=== PATIENT | female | born 1955 | race Hispanic/Latino ===

== ENCOUNTER 2017-07-23 16:58 | Emergency (ER) | payer OTHER, MEDICARE ==
[2017-07-23 17:49] LABS: APPEARANCE,URINE Cloudy (CLEAR); BILIRUBIN,URINE Small (NEGATIVE); COLOR,URINE Dark Yellow (YELLOW); GLUCOSE, URINE (UA) Negative (NEGATIVE); KETONES,URINE Negative (NEGATIVE); LEUKOCYTE ESTERASE ,URINE Moderate (NEGATIVE); NITRATE,URINE Negative (NEGATIVE); OCCULT BLOOD,URINE Large (NEGATIVE); PH,URINE 6.5 (5.0-8.0); PROTEIN,URINE POS 2+ (NEGATIVE)
[2017-07-23] MEDS ORDERED: SODIUM CHLORIDE 0.9% 1000ML 1,000 ML IV ONE (17:51)
[2017-07-23] MEDS ORDERED: ONDANSETRON HCL 4 MG/2 ML VIAL ONE (17:51)
[2017-07-23] MEDS ORDERED: KETOROLAC TROMETHAMINE 30MG/ML ONE (17:51)
[2017-07-23 17:55] LABS: BASOPHILS % (AUTO) 0.8 % (0.0-5.0); EOSINOPHILS % (AUTO) 2.5 % (0.0-8.0); HEMATOCRIT 40.2 % (36-48); LYMPHOCYTES % (AUTO) 27.9 % (21.0-51.0); MEAN CORPUSCULAR HEMOGLOBIN 29.4 pg (27.0-33.0); MEAN CORPUSCULAR VOLUME 86.5 fL (79-99); NEUTROPHILS % (AUTO) 60.8 % (40.0-77.0); PLATELET COUNT (AUTO) 299 K/uL (130-400); RED BLOOD CELL COUNT(AUTO) 4.65 MIL/uL (4.00-5.50); WHITE BLOOD COUNT (AUTO) 14.9 K/uL (4.8-10.8)
[2017-07-23 18:04] LABS: BACTERIA,URINE Rare /HPF (None Seen); MUCUS,URINE Few LPF (None Seen)
[2017-07-23 18:05] LABS: CREATININE 0.7 mg/dL (0.5-1.5); POTASSIUM 3.2 mmol/L (3.5-5.1)
[2017-07-23] MEDS ORDERED: CEFTRIAXONE SODIUM 1 GM ONE (19:10)
[2017-07-23] MEDS ORDERED: PHENAZOPYRIDINE HCL 200 MG TABLET ONE (19:53)
== END 2017-07-23 20:28 | disposition home or self-care (01) ==
LOC: EDH 16:58
DX: N39.0 Urinary tract infection, site not specified (principal); R10.9 Unspecified abdominal pain; I10 Essential (primary) hypertension; E11.9 Type 2 diabetes mellitus without complications; M19.90 Unspecified osteoarthritis, unspecified site; E07.9 Disorder of thyroid, unspecified; M79.7 Fibromyalgia; Z98.890 Other specified postprocedural states
CPT/HCPCS: 36415; 74176; 80048; 81001; 85025; 96361; 96374; 96375; 99285; J0696; J1885; J2405; J7030

== ENCOUNTER → 2018-03-08 | Outpatient (CLI) | payer OTHER, MEDICARE ==
[~2018-03-08] MED LIST: ASPI-555 PO; DEXL60CA3 PO; DULO40CA2 PO; GABA-318 PO; LAMO25TA8 PO; LEVO75TA4 PO; LOSA1TAB2 PO; LOVA10TA2 PO; METF-444 PO; OMEP20TA25 PO; TRAZ-187 PO
== END | disposition home or self-care (01) ==
LOC: RAH 13:02
PROVIDERS: ATTEND Internal Medicine
DX: N20.0 Calculus of kidney (principal)
CPT/HCPCS: 74018

== ENCOUNTER → 2018-03-21 | Outpatient (CLI) | payer OTHER, MEDICARE | END | disposition home or self-care (01) | LOC: OIH 08:19 | PROVIDERS: ATTEND Internal Medicine | DX: N20.0 Calculus of kidney (principal); N26.1 Atrophy of kidney (terminal); K74.60 Unspecified cirrhosis of liver; Q63.8 Other specified congenital malformations of kidney | CPT/HCPCS: 74176 ==

== ENCOUNTER 2018-06-06 15:40 | Observation (INO) | payer OTHER, MEDICARE ==
[~2018-06-06] VITALS: Ht 157.5 cm; Wt 78.5 kg
[2018-06-06] VITALS (15 sets, daily range): BP systolic 126–151; BP diastolic 58–87
[2018-06-06 16:20] LABS: APPEARANCE,URINE Clear (CLEAR); BILIRUBIN,URINE Negative (NEGATIVE); COLOR,URINE Yellow (YELLOW); GLUCOSE, URINE (UA) Negative (NEGATIVE); KETONES,URINE Negative (NEGATIVE); LEUKOCYTE ESTERASE ,URINE Negative (NEGATIVE); NITRATE,URINE Negative (NEGATIVE); OCCULT BLOOD,URINE Negative (NEGATIVE); PH,URINE 6.5 (5.0-8.0); PROTEIN,URINE Negative (NEGATIVE)
[2018-06-06 16:51] LABS: BASOPHILS % (AUTO) 1.2 % (0.0-5.0); EOSINOPHILS % (AUTO) 2.5 % (0.0-8.0); HEMATOCRIT 36.6 % (36-48); LYMPHOCYTES % (AUTO) 28.1 % (21.0-51.0); MEAN CORPUSCULAR HEMOGLOBIN 29.1 pg (27.0-33.0); MEAN CORPUSCULAR HGB CONC 33.4 g/dL (32.0-36.0); MEAN CORPUSCULAR VOLUME 86.9 fL (79-99); MONOCYTES % (AUTO) 7.7 % (3.0-13.0); NEUTROPHILS % (AUTO) 60.5 % (40.0-77.0); PLATELET COUNT (AUTO) 244 K/uL (130-400); RED BLOOD CELL COUNT(AUTO) 4.21 MIL/uL (4.00-5.50); RED CELL DISTRIBUTION WIDTH 12.4 % (11.0-15.5); WHITE BLOOD COUNT (AUTO) 14.1 K/uL (4.8-10.8)
[2018-06-06 16:59] LABS: POTASSIUM 3.8 mmol/L (3.5-5.1)
[2018-06-06 17:02] LABS: PARTIAL THROMBOPLASTIN TIME 28.7 SEC (26.3-35.5); PROTHROMBIN TIME 10.5 SEC (9.6-11.6)
[2018-06-06 17:04] LABS: ALBUMIN 3.6 g/dL (3.5-5.0); BILIRUBIN,TOTAL 0.2 mg/dL (0.2-1.0); TOTAL PROTEIN, SERUM 8.4 g/dL (6.0-8.3)
[2018-06-06] MEDS ORDERED: SODIUM CHLORIDE 0.9% 1000ML 1,000 ML IV ONE (18:03)
[2018-06-06] MEDS ORDERED: FENTANYL CITRATE PF 50 MCG/1 ML 2ML VIAL ONE (18:41)
[2018-06-06] MEDS ORDERED: LIDOCAINE PF 2% 5ML ABBOJECT ONE (18:41)
[2018-06-06] MEDS ORDERED: PROPOFOL 10 MG/ML 20ML VIAL IV ONE (18:41)
[2018-06-06] MEDS ORDERED: IOHEXOL-350 50ML VIAL IV ONE (18:54)
[2018-06-06] MEDS ORDERED: CEFTRIAXONE SODIUM 1 GM ONE (19:04)
[2018-06-06] MEDS ORDERED: EPHEDRINE SULFATE 50 MG/ML AMPULE ONE (19:21)
[2018-06-06] MEDS ORDERED: GLYCOPYRROLATE 1 MG/5 ML SYRINGE ONE (19:26)
[2018-06-06] MEDS ORDERED: PHENYLEPHRINE HCL 10 MG/ML 1ML VIAL IV ONE (19:29)
[2018-06-06] MEDS ORDERED: SODIUM CHLORIDE 0.9% 10 ML VIAL ONE (19:29)
[2018-06-06] MEDS ORDERED: MIDAZOLAM HCL 1 MG/ML 2ML VIAL ONE (19:53)
[2018-06-06] MEDS ORDERED: ONDANSETRON HCL 4 MG/2 ML VIAL ONE (20:55)
[2018-06-06] MEDS ORDERED: ONDANSETRON HCL MDV 20ML 2 MG/ML VIAL IVP PRN (22:45)
[2018-06-06] MEDS ORDERED: LACTATED RINGERS 1000ML 1,000 ML IV SCH (22:45)
[2018-06-06] MEDS ORDERED: KETOROLAC TROMETHAMINE 15MG/ML IV PRN (22:45)
[2018-06-06] MEDS ORDERED: ACETAMINOPHEN-CODEINE 300/30MG TAB PO PRN (22:45)
[2018-06-07 00:51] VITALS: BP 144/74
[2018-06-07 01:51] VITALS: BP 121/57
[2018-06-07 02:51] VITALS: BP 123/69
[2018-06-07 03:51] VITALS: BP 132/74
[2018-06-07 04:57] LABS: HEMATOCRIT 34.9 % (36-48); MEAN CORPUSCULAR HEMOGLOBIN 28.5 pg (27.0-33.0); MEAN CORPUSCULAR HGB CONC 32.8 g/dL (32.0-36.0); MEAN CORPUSCULAR VOLUME 87.1 fL (79-99); PLATELET COUNT (AUTO) 229 K/uL (130-400); RED BLOOD CELL COUNT(AUTO) 4.01 MIL/uL (4.00-5.50); RED CELL DISTRIBUTION WIDTH 12.6 % (11.0-15.5); WHITE BLOOD COUNT (AUTO) 14.8 K/uL (4.8-10.8)
[2018-06-07 05:21] LABS: POTASSIUM 4.3 mmol/L (3.5-5.1)
[2018-06-07] MEDS ORDERED: SODIUM CHLORIDE 0.9% 10 ML VIAL IVP PRN (06:45)
[2018-06-07 07:00] VITALS: BP 127/82
[2018-06-07] MEDS ORDERED: TAMS-1 PO (11:15)
[2018-06-07] MEDS ORDERED: CEPH250C2 PO (11:16)
[2018-06-07 12:00] VITALS: BP 128/71
== END 2018-06-07 12:05 | disposition home or self-care (01) ==
LOC: EDH 15:40 → EDHIP 16:38 → 3CH 19:56
PROVIDERS: ADMIT Urology; ATTEND Urology
DX: N20.2 Calculus of kidney with calculus of ureter (principal); E11.9 Type 2 diabetes mellitus without complications; I10 Essential (primary) hypertension; K59.00 Constipation, unspecified; M79.7 Fibromyalgia; Z86.73 Personal history of transient ischemic attack (TIA), and cerebral infarction without residual deficits; Z87.442 Personal history of urinary calculi; Z90.710 Acquired absence of both cervix and uterus; Z79.01 Long term (current) use of anticoagulants
CPT/HCPCS: 36415 ×2; 52356; 76000; 80048; 80053; 81003; 82948 ×3; 85025; 85027; 85610; 85730; 87088; 96374; 99284; A4218; A4358; A4649 ×2; A6207; C1758; C1769; C1894; C2617; G0378 ×19; J0696; J1885; J2001; J2250; J2370; J2405; J2704; J3010; J3490 ×2; J7030 ×2; Q9967

== ENCOUNTER 2018-06-17 14:46 | Emergency (ER) | payer OTHER, MEDICARE | END 2018-06-17 18:32 | disposition home or self-care (01) | LOC: EDH 14:46 | DX: K59.00 Constipation, unspecified (principal); E11.9 Type 2 diabetes mellitus without complications; I10 Essential (primary) hypertension; M19.90 Unspecified osteoarthritis, unspecified site; E07.9 Disorder of thyroid, unspecified; M79.7 Fibromyalgia; Z72.0 Tobacco use ==

== ENCOUNTER 2023-05-22 13:12 | Emergency (ER) | payer OTHER, MEDICARE ==
[~2023-05-22] VITALS: Ht 157.5 cm; Wt 79.4 kg
[2023-05-22 13:20] VITALS: BP 140/73; PULSE 96; O2SAT 97
[2023-05-22 14:21] LABS: MEAN CORPUSCULAR HEMOGLOBIN 30.1 pg (27.0-33.0); MEAN CORPUSCULAR HGB CONC 33.8 g/dL (32.0-36.0); MEAN CORPUSCULAR VOLUME 89.1 fL (79-99); PLATELET COUNT (AUTO) 196 K/uL (130-400); RED BLOOD CELL COUNT(AUTO) 4.49 MIL/uL (4.00-5.50); RED CELL DISTRIBUTION WIDTH 13.2 % (11.0-15.5)
[2023-05-22 14:39] LABS: CREATININE 0.8 mg/dL (0.5-1.5); POTASSIUM 3.9 mmol/L (3.5-5.1)
[2023-05-22 14:42] LABS: ALBUMIN 3.3 g/dL (3.5-5.0); BILIRUBIN,TOTAL 0.7 mg/dL (0.2-1.0); TOTAL PROTEIN, SERUM 8.1 g/dL (6.0-8.3)
[2023-05-22 14:47] LABS: APPEARANCE,URINE CLEAR (CLEAR); BILIRUBIN,URINE NEGATIVE (NEGATIVE); COLOR,URINE YELLOW (YELLOW); GLUCOSE, URINE (UA) NEGATIVE (NEGATIVE); KETONES,URINE 40 mg/dL (NEGATIVE); LEUKOCYTE ESTERASE ,URINE 75 Leu/uL (NEGATIVE); NITRATE,URINE NEGATIVE (NEGATIVE); OCCULT BLOOD,URINE LARGE (NEGATIVE); PROTEIN,URINE 600 mg/dL (NEGATIVE)
[2023-05-22 14:54] LABS: ADD UA MICROSCOPIC YES
[2023-05-22 14:57] LABS: BACTERIA,URINE MOD /HPF (None Seen); MUCUS,URINE FEW LPF (None Seen); RBC,URINE 26-50 /HPF (0-1); SQUAMOUS EPITHELIAL CELL,UR FEW /HPF (0-2); WBC,URINE 51-100 /HPF (0-1)
[2023-05-22] MEDS ORDERED: LACTATED RINGERS 1000ML 1,000 ML IV ONE (15:30)
[2023-05-22] MEDS ORDERED: KETOROLAC 30MG VIAL (30MG/ML) IM ONE (15:30)
[2023-05-22 15:36] LABS: LYMPHOCYTES % (MANUAL) 16 % (22-44); MONOCYTES % (MANUAL) 13 % (2-9); SEGMENTED NEUTROPHILS % 71 % (40-70); TOTAL CELLS COUNTED 100
[2023-05-22 15:39] LABS: MAN.DIFF COMMENT-IMPRESSION MANUAL DIFFERENTIAL
[2023-05-22 15:40] LABS: PLATELET MORPHOLOGY COMMENT ADEQUATE; WBC MORPHOLOGY SMUDGE CELLS 1+
[2023-05-22] MEDS ORDERED: CEFTRIAXONE 1G VIAL IVPB ONE (20:00)
== END 2023-05-22 21:20 | disposition left against medical advice (07) ==
LOC: EDH 13:12
DX: N39.0 Urinary tract infection, site not specified (principal); E11.9 Type 2 diabetes mellitus without complications; E78.00 Pure hypercholesterolemia, unspecified; I10 Essential (primary) hypertension
CPT/HCPCS: 36415; 80053; 81001; 85025; 87040; 87077; 87088; 87186

== ENCOUNTER 2024-06-02 20:21 | Emergency (ER) | payer MEDICARE ==
[~2024-06-02] VITALS: Ht 157.5 cm; Wt 80.3 kg
[2024-06-02] MEDS: acetaMINOPHEN 325 MG TAB PO ONE (21:05)
[2024-06-02 21:31] LABS: BASOPHILS # (AUTO) 0.08 K/uL (0.00-0.20); BASOPHILS % (AUTO) 0.6 % (0.0-5.0); EOSINOPHILS # (AUTO) 0.43 K/uL (0.00-0.70); EOSINOPHILS % (AUTO) 3.5 % (0.0-8.0); HEMATOCRIT 37.2 % (36-48); IMMATURE GRANULOCYTE ABSOLUTE 0.05 K/uL (0-1); LYMPHOCYTES # (AUTO) 3.5 K/uL (1.0-4.8); LYMPHOCYTES % (AUTO) 28.6 % (21.0-51.0); MEAN CORPUSCULAR HEMOGLOBIN 29.3 pg (27.0-33.0); MEAN CORPUSCULAR HGB CONC 33.6 g/dL (32.0-36.0); MEAN CORPUSCULAR VOLUME 87.3 fL (79-99); MONOCYTES % (AUTO) 7.8 % (3.0-13.0); NEUTROPHILS # (AUTO) 7.3 K/uL (1.8-7.7); NEUTROPHILS % (AUTO) 59.1 % (40.0-77.0); PLATELET COUNT (AUTO) 228 K/uL (130-400); RED BLOOD CELL COUNT(AUTO) 4.26 MIL/uL (4.00-5.50); RED CELL DISTRIBUTION WIDTH 12.7 % (11.0-15.5); WHITE BLOOD COUNT (AUTO) 12.4 K/uL (4.8-10.8)
[2024-06-02 21:39] LABS: CREATININE 0.8 mg/dL (0.5-1.0); POTASSIUM 3.6 mmol/L (3.5-5.1)
[2024-06-02] MEDS ORDERED: 0.9% NACL 500ML IV.SOLN 500 ML IV SCH (22:00)
[2024-06-02 22:12] LABS: APPEARANCE,URINE CLEAR (CLEAR); BILIRUBIN,URINE NEGATIVE (NEGATIVE); COLOR,URINE LIGHT-YELLOW (YELLOW); GLUCOSE, URINE (UA) NEGATIVE (NEGATIVE); KETONES,URINE NEGATIVE (NEGATIVE); LEUKOCYTE ESTERASE ,URINE 25 Leu/uL (NEGATIVE); NITRATE,URINE NEGATIVE (NEGATIVE); OCCULT BLOOD,URINE NEGATIVE (NEGATIVE); PH,URINE 6.5 (5.0-8.0); PROTEIN,URINE NEGATIVE (NEGATIVE); UROBILINOGEN,URINE 0.2 mg/dL (0.2-1.0)
[2024-06-02 22:16] LABS: ADD UA MICROSCOPIC YES
[2024-06-02 22:20] LABS: BACTERIA,URINE RARE /HPF (None Seen); RBC,URINE 0-1 /HPF (0-1); SQUAMOUS EPITHELIAL CELL,UR RARE /HPF (0-2)
--- NOTE | 2024-06-02 22:56 | HMCIMG ---
CT CHEST/ABD/PELV W/O CONTRAST HISTORY: Status post fall COMPARISON: None TECHNIQUE: Multiple sequential axial images of the chest were obtained from the thoracic inlet through upper abdomen. Patient was not given contrast through intravenous route. FINDINGS: There is no evidence of pulmonary nodule or parenchymal disease. No pleural effusion or pericardial effusion is seen. There is no evidence of pneumothorax. There are normal size mediastinal and hilar lymph nodes. The heart is not enlarged. Degenerative changes of the thoracolumbar spine are present. There is no evidence of adrenal nodule. IMPRESSION: 1. No evidence of pulmonary nodule or effusion is seen. CT CHEST/ABD/PELV W/O CONTRAST HISTORY: Status post fall COMPARISON: None TECHNIQUE: Multiple sequential axial images of the abdomen and pelvis were obtained from the dome of the diaphragm through symphysis pubis. Patient was not given contrast through intravenous route. Oral contrast was not given. FINDINGS: Liver measures 16.3 cm. Postcholecystectomy changes are seen. Bilateral renal cortical scarring is seen. The liver, spleen, adrenal glands and pancreas are unremarkable. There is no evidence of hydronephrosis bilaterally. There is 5 mm left renal pelvic stone. Fecal material is seen in the colon. There are normal size retroperitoneal and mesenteric lymph nodes. No ascites is seen. No CT evidence of acute appendicitis is seen. Pelvic sidewalls are symmetric bilaterally. Bladder is poorly distended. IMPRESSION: 1. Fecal material in the colon. 5 mm left renal pelvic stone. CT was performed with one or more following dose reduction techniques: automated exposure control, adjustment of the mA and kv according to patient's size, or use of a iterative reconstruction technique.
--- NOTE | 2024-06-02 23:12 | ERN ---
ED Note History of Present Illness Stated Complaint: C/O PAIN TO RT RIB AREA AND PAIN TO RT EYE/FALL Chief Complaint: Mechanical Fall Time Seen by MD: 20:30 Time Seen by Midlevel: 20:30 Dictation: The patient is a 68-year-old female with a history of diabetes, osteoporosis, CVA, hypothyroidism who presents to the emergency department with complaints of right upper abdominal pain after a fall five days ago. Patient reports she rolled down her bed and fell to the floor injuring her right eye and her left forearm which were evaluated at the ER. Patient reports she forgot to tell the doctor that she also had pain to the right upper quadrant area. Denies use of blood thinners. No other complaints reported. Allergies: Coded Allergies: No Known Allergies (Unverified Allergy, Unknown, 12/30/17) Home Meds No Active Prescriptions or Reported Meds Past Medical History Past Medical History: Arthritis, CVA, Diabetes-Type II, Fibromyalgia, Hypertension, Hypothyroid, Other Additional Past Medical Hx: HX OF OSTERPOROSIS Surgical History: Hysterectomy, Cholecystectomy, Social History: Negative RN Note Reviewed/Agreed w/PFSH: Yes Review of System Dictation Constitutional: Negative for fever,chills, and weight loss Eyes: Negative for injury, pain,redness, and discharge ENT: Negative for injury,pain or swelling Cardiovascular: Negative for chest pain, palpitations, and edema Respiratory: Negative for shortness of breath, cough, and wheezing, Abdomen/GI: Negative for nausea, vomiting, diarrhea, and constipation positive for right upper abdominal pain Back: Negative for injury and pain : Negative for injury, bleeding and discharge MS/Extremity: Negative for injury and deformity Skin: Negative for rash, and discoloration Neuro: Negative for headache, weakness, numbness, tingling, and seizure Psych: Negative for suicide ideation, homicidal ideation, and hallucinations Initial Vital Sign VS Vital Signs Date Time Temp Pulse Resp B/P (MAP) Pulse Ox O2 Delivery O2 Flow Rate FiO2 06/02/24 20:23 98.8 81 20 172/77 98 Room Air Physical Exam Dictation Vital Signs reviewed General Appearance: Alert, oriented x 3, no acute distress, well developed, nourished. Head and Face: Small bruising to right eye, ocular motor intact Eyes: PERRL, pink conjunctivas, eyelid bruising, anterior chamber with arcus senilis. Ears: Pinnas intact and no signs of trauma or erythema ear canals clear and no discharge TM no erythema Nose: No discharge, no bleeding. Oropharynx: Mouth normal, tongue pink. pharynx clear,no erythema, tonsils no exudates, no abscesses noted, mucous membrane moist Neck: Supple, non-tender, no thyromegaly, no masses, no JVD, no bruits Breast:Deferred Chest:No tenderness, no crepitus, no paradoxical movement, no retractions Lungs:Clear, well-ventilated, symmetric, no rales, no wheezing, no rhonchi, no stridor, good breath sounds bilaterally Heart: Regular rate, regular rhythm, no murmur, no gallops Vascular: no peripheral edema, Abdomen: Soft, positive bowel sounds, nondistended, no guarding, nontender, no rebound, no masses no hepatomegaly, no splenomegaly, no Hi's sign, no hernias. Rectal: Deferred Genital: Deferred Neurological: Normal speech, motor function intact, sensory function intact Musculoskeletal: Neck nontender, full range of motion, back nontender, full range of motion, Extremities: nontender, full range of motion Skin: Color pink, dry, no turgor, no rash, no lacerations, no abrasions, no contusions. Lymphatic: Deferred Results (Laboratory/Radiology) Laboratory/Radiology Laboratory Tests Test 06/02/24 21:26 06/02/24 22:02 White Blood Count 12.4 K/uL (4.8-10.8) H Red Blood Count 4.26 MIL/uL (4.00-5.50) Hemoglobin 12.5 g/dL (12.0-16.0) Hematocrit 37.2 % (36-48) Mean Corpuscular Volume 87.3 fL (79-99) Mean Corpuscular Hemoglobin 29.3 pg (27.0-33.0) Mean Corpuscular Hemoglobin Concent 33.6 g/dL (32.0-36.0) Red Cell Distribution Width 12.7 % (11.0-15.5) Platelet Count 228 K/uL (130-400) Mean Platelet Volume 9.5 fL (7.5-10.5) Immature Granulocyte % (Auto) 0.4 % (0-1) Neutrophils (%) (Auto) 59.1 % (40.0-77.0) Lymphocytes (%) (Auto) 28.6 % (21.0-51.0) Monocytes (%) (Auto) 7.8 % (3.0-13.0) Eosinophils (%) (Auto) 3.5 % (0.0-8.0) Basophils (%) (Auto) 0.6 % (0.0-5.0) Neutrophils # (Auto) 7.3 K/uL (1.8-7.7) Lymphocytes # (Auto) 3.5 K/uL (1.0-4.8) Monocytes # (Auto) 1.0 K/uL (0.1-1.0) Eosinophils # (Auto) 0.43 K/uL (0.00-0.70) Basophils # (Auto) 0.08 K/uL (0.00-0.20) Absolute Immature Granulocyte (auto 0.05 K/uL (0-1) Nucleated Red Blood Cells 0.0 % (0.0-0.19) Sodium Level 141 mmol/L (136-145) Potassium Level 3.6 mmol/L (3.5-5.1) Chloride Level 104 mmol/L (101-111) Carbon Dioxide Level 29 mmol/L (21-32) Blood Urea Nitrogen 12 mg/dL (7-18) Creatinine 0.8 mg/dL (0.5-1.0) Glomerular Filtration Rate Calc 79 mL/min (>90) Random Glucose 163 mg/dL (70-105) H Total Calcium 9.3 mg/dL (8.5-10.1) Urine Color LIGHT-YELLOW (YELLOW) Urine Appearance CLEAR (CLEAR) Urine pH 6.5 (5.0-8.0) Urine Specific [place] 1.008 (1.001-1.031) Urine Protein NEGATIVE mg/dL (NEGATIVE) Urine Glucose (UA) NEGATIVE mg/dL (NEGATIVE) Urine Ketones NEGATIVE mg/dL (NEGATIVE) Urine Occult Blood NEGATIVE (NEGATIVE) Urine Nitrate NEGATIVE (NEGATIVE) Urine Bilirubin NEGATIVE mg/dL (NEGATIVE) Urine Urobilinogen 0.2 mg/dL (0.2-1.0) Urine Leukocyte Esterase 25 Beryl/uL (NEGATIVE) H Urine RBC 0-1 /HPF (0-1) Urine WBC 6-10 /HPF (0-1) H Urine Squamous Epithelial Cells RARE /HPF (0-2) Urine Bacteria RARE /HPF (None Seen) REASON: S/P FALL ORDERING PHYSICIAN: CARLOS MOSQUERA [employer] PROCEDURE: CAP WO - CT CHEST/ABD/PELV W/O CONTRAST CT CHEST/ABD/PELV W/O CONTRAST HISTORY: Status post fall COMPARISON: None TECHNIQUE: Multiple sequential axial images of the chest were obtained from the thoracic inlet through upper abdomen. Patient was not given contrast through intravenous route. FINDINGS: There is no evidence of pulmonary nodule or parenchymal disease. No pleural effusion or pericardial effusion is seen. There is no evidence of pneumothorax. There are normal size mediastinal and hilar lymph nodes. The heart is not enlarged. Degenerative changes of the thoracolumbar spine are present. There is no evidence of adrenal nodule. IMPRESSION: 1. No evidence of pulmonary nodule or effusion is seen. CT CHEST/ABD/PELV W/O CONTRAST HISTORY: Status post fall COMPARISON: None TECHNIQUE: Multiple sequential axial images of the abdomen and pelvis were obtained from the dome of the diaphragm through symphysis pubis. Patient was not given contrast through intravenous route. Oral contrast was not given. FINDINGS: Liver measures 16.3 cm. Postcholecystectomy changes are seen. Bilateral renal cortical scarring is seen. The liver, spleen, adrenal glands and pancreas are unremarkable. There is no evidence of hydronephrosis bilaterally. There is 5 mm left renal pelvic stone. Fecal material is seen in the colon. There are normal size retroperitoneal and mesenteric lymph nodes. No ascites is seen. No CT evidence of acute appendicitis is seen. Pelvic sidewalls are symmetric bilaterally. Bladder is poorly distended. IMPRESSION: 1. Fecal material in the colon. 5 mm left renal pelvic stone. CT was performed with one or more following dose reduction techniques: automated exposure control, adjustment of the mA and kv according to patient's size, or use of a iterative reconstruction technique. Labs Reviewed?: Yes ED Course ED Course Orders Procedure Category Date Status Time Cbc With Differential LAB 06/02/24 Complete 20:46 Basic Metabolic Panel LAB 06/02/24 Complete 20:46 Acetaminophen 325 Tab PHA 06/02/24 Complete (Tylenol 325mg Tab 21:00 Urinalysis Profile LAB 06/02/24 Complete 21:41 0.9% Nacl 500ml PHA 06/02/24 Complete Iv.Soln (Ns 500ml 22:00 Ct Chest/Abd/Pelv W/O CT 06/02/24 Resulted Contrast 22:18 Culture Urine NAOMY 06/02/24 In Process 22:23 Ceftriaxone 1g Vial PHA 06/02/24 In Process (Rocephine 1g Inj) 23:30 Tamsulosin Hcl PHA 06/02/24 In Process (Flomax) 23:30 Current Medications Medications (Trade) Dose Ordered Sig/Veronica Route PRN Reason Start Time Stop Time Status Last Admin Dose Admin Acetaminophen (TYLenol 325MG TAB) 650 mg ONCE ONCE PO 06/02/24 21:00 06/02/24 21:01 DC 06/02/24 21:05 Ceftriaxone Sodium (ROCEphine 1G INJ) 1 gm ONCE ONCE IV 06/02/24 23:30 06/02/24 23:31 Sodium Chloride 500 ml @ 0 mls/hr Q0M IV 06/02/24 22:00 06/02/24 22:20 DC Tamsulosin HCl (FloMAX) 0.4 mg ONCE ONCE PO 06/02/24 23:30 06/02/24 23:31 Vital Signs Date Time Temp Pulse Resp B/P (MAP) Pulse Ox O2 Delivery O2 Flow Rate FiO2 06/02/24 20:23 98.8 81 20 172/77 98 Room Air Medical Decision Making MDM The patient is a 68-year-old female with a history of diabetes, osteoporosis, CVA, hypothyroidism who presents to the emergency department with complaints of right upper abdominal pain after a fall five days ago. Patient reports she rolled down her bed and fell to the floor injuring her right eye and her left forearm which were evaluated at the ER. Patient reports she forgot to tell the doctor that she also had pain to the right upper quadrant area. Denies use of blood thinners. No other complaints reported. CBC showed mild leukocytosis, no anemia, chemistry showed mild hyperglycemia, urinalysis with leukocyte esterase. Patient giving a dose of Rocephin and will be discharged on antibiotics. CT showed5 mm I left renal pelvic stone. Patient no pain to lef flank area. No pneumothorax. Patient in no acute distress will be discharged to follow up with Urology and PCP. Differential diagnosis: Liver laceration, electrolyte imbalance, intra- abdominal hemorrhage, abdominal contusion, rib fracture Need for hospitalization: Patient does not meet criteria for hospitalization. There are no social concerns with this patient. DX & DISP Disposition: Discharge Departure Impression: Primary Impression: Fall Additional Impressions: Abdominal contusion, UTI (urinary tract infection), Left renal stone Condition: Stable Scripts Nitrofurantoin Monohyd/M-Cryst (Macrobid 100 mg Capsule) 100 Mg Capsule 1 CAP PO BID for 5 Days, #10 CAP 0 Refills Prov: CARLOS MOSQUERA [facility] 06/02/24 Tamsulosin HCl (Flomax) 0.4 Mg Cap.er.24h 0.4 MG PO DAILY, #30 CAPSULE.DR Prov: CARLOS MOSQUERA [facility] 06/02/24 Additional Instructions: Please follow up with primary doctor in 1-2 days. Please follow up with urologist. Take medications as prescribed. Please return to ER if symptoms worsen. FOLLOW-UP WITH PRIMARY CARE PROVIDER IN 1 TO 2 DAYS. TAKE MEDICATIONS DIRECTED HERE IN THE EMERGENCY ROOM. OKAY TO CONTINUE HOME MEDICATIONS UNLESS OTHERWISE DISCUSSED DURING YOUR VISIT IN THE EMERGENCY ROOM TODAY. RETURN TO YOUR NEAREST EMERGENCY ROOM IF SYMPTOMS WORSEN OR IF THERE IS NO IMPROVEMENT. CALL 911 IF YOU NEED IMMEDIATE ASSISTANCE. TAKE TYLENOL OR MOTRIN [id number] NEEDED AND IF NO CONTRAINDICATIONS ARE PRESENT. INCREASE ORAL HYDRATION. A WOUND CULTURE OR URINE CULTURE WAS ORDERED HERE IN THE EMERGENCY ROOM DEPARTMENT PLEASE FOLLOW-UP WITH PRIMARY CARE PROVIDER AND ADVISE THEM TO GET REPEAT PORTS FROM OUR FACILITY. IF YOU HAD ANY AMBER WRAP/SPLINTS THAT WERE APPLIED HERE, PLEASE DO NOT REMOVE THEM UNTIL YOU SEE YOUR PRIMARY CARE OR SPECIALTY. Referrals: FINA VIZCAINO MD (PCP) ELIDIA PABLO MD Time of Disposition: 23:18 I have reviewed the case, and I agree with, Diagnosis and Plan CARLOS MOSQUERA [facility] Jun 02, 2024 23:12
[2024-06-02] MEDS ORDERED: NITR100C4 PO (23:20)
[2024-06-02] MEDS ORDERED: TAMS-1 PO (23:20)
[2024-06-02] MEDS ORDERED: cefTRIAXone 1G VIAL IV ONE (23:30)
[2024-06-02] MEDS: tamSULOsin HCL 0.4 MG CAP.ER.24H PO ONE (23:36)
[2024-06-02] MEDS: cefTRIAXone 1G VIAL IM ONE (23:36)
[2024-06-02 23:42] VITALS: BP 162/91; PULSE 97; RESP 18; TEMP 98.2; O2SAT 98
== END 2024-06-02 23:47 | disposition home or self-care (01) ==
LOC: EDH 20:21
DX: S30.1XXA Contusion of abdominal wall, initial encounter (principal); N39.0 Urinary tract infection, site not specified; N20.0 Calculus of kidney; E11.9 Type 2 diabetes mellitus without complications; I10 Essential (primary) hypertension; E03.9 Hypothyroidism, unspecified; M19.90 Unspecified osteoarthritis, unspecified site; M79.7 Fibromyalgia; Z86.73 Personal history of transient ischemic attack (TIA), and cerebral infarction without residual deficits; Z90.49 Acquired absence of other specified parts of digestive tract; Z90.710 Acquired absence of both cervix and uterus; W18.39XA Other fall on same level, initial encounter; Y93.89 Activity, other specified; Y92.89 Other specified places as the place of occurrence of the external cause; Y99.8 Other external cause status
CPT/HCPCS: 99285; 71250; 80048; 85025; 87086; 81001; 36415; 74176; 96372; J0696

== ENCOUNTER 2024-11-22 17:22 | Emergency (ER) | payer MEDICARE ==
[~2024-11-22] VITALS: Ht 157.5 cm; Wt 79.4 kg
[~2024-11-22 17:22] MED LIST changes: -ASPI-555 PO; -DEXL60CA3 PO; -DULO40CA2 PO; -GABA-318 PO; -LAMO25TA8 PO; -LEVO75TA4 PO; -LOSA1TAB2 PO; -LOVA10TA2 PO; -METF-444 PO; +NITR100C4 PO; -OMEP20TA25 PO; +TAMS-55 PO; -TRAZ-187 PO
--- NOTE | 2024-11-22 17:48 | EKG ---
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
[2024-11-22 18:04] LABS: BASOPHILS # (AUTO) 0.09 K/uL (0.00-0.20); BASOPHILS % (AUTO) 0.7 % (0.0-5.0); EOSINOPHILS # (AUTO) 0.26 K/uL (0.00-0.70); EOSINOPHILS % (AUTO) 1.9 % (0.0-8.0); HEMATOCRIT 39.1 % (36-48); IMMATURE GRANULOCYTE ABSOLUTE 0.03 K/uL (0-1); MEAN CORPUSCULAR HEMOGLOBIN 29.5 pg (27.0-33.0); MEAN CORPUSCULAR HGB CONC 32.7 g/dL (32.0-36.0); MEAN CORPUSCULAR VOLUME 90.1 fL (79-99); MONOCYTES # (AUTO) 1.5 K/uL (0.1-1.0); MONOCYTES % (AUTO) 11.1 % (3.0-13.0); NEUTROPHILS # (AUTO) 7.8 K/uL (1.8-7.7); NEUTROPHILS % (AUTO) 57.1 % (40.0-77.0); PLATELET COUNT (AUTO) 277 K/uL (130-400); RED BLOOD CELL COUNT(AUTO) 4.34 MIL/uL (4.00-5.50); WHITE BLOOD COUNT (AUTO) 13.7 K/uL (4.8-10.8)
[2024-11-22 18:21] LABS: POTASSIUM 3.9 mmol/L (3.5-5.1)
[2024-11-22 18:30] LABS: ALBUMIN 3.5 g/dL (3.5-5.0); BILIRUBIN,DIRECT 0.1 mg/dL (0.0-0.3); BILIRUBIN,TOTAL 0.3 mg/dL (0.2-1.0)
[2024-11-22] MEDS: PANTOPrazole 40 MG/VIAL IVP ONE (18:42)
[2024-11-22] MEDS: ondanSETRON 4MG INJ IVP ONE (18:42)
[2024-11-22] MEDS: morPHINE 2 MG SYG IVP ONE (18:43)
[2024-11-22] MEDS ORDERED: IOHEXOL 350 MG/ML 100ML INFUS..BTL IV ONE (18:54)
--- NOTE | 2024-11-22 19:33 | HMCIMG ---
Exam Type: CT ABDOMEN/PELVIS W/CONTRAST Clinical Information: generalized abdominal pain Comparison: None Contrast: 100 cc's Isovue 370 IV, no complications or adverse reactions CT Dose Index (CTDI): 31.60 mGy Dose Length Product (DLP): 1740.80 total mGy-cm Findings: No evidence of nephro or ureterolithiasis is found. No hydronephrosis or ureteral dilatation is seen. The lung bases are clear. The stomach is unremarkable. It shows no wall thickening. No gross ulceration is seen. It is not overly distended. There are no surrounding inflammatory changes. No wall lesions are identified to suggest cancer. The spleen is unremarkable. It is not enlarged. The pancreas shows normal anatomy. It is not fatty replaced. It shows no lesions. The pancreatic duct is not dilated. The gallbladder is surgically absent. The adrenal glands are unremarkable. There is no enlargement. No lesions are noted. The liver is unremarkable. It shows no focal masses. The appendix is unremarkable. It shows no evidence of inflammation. No appendicolith is seen. The small bowel is unremarkable. There is no evidence of dilatation to suggest obstruction. No evidence of adynamic ileus is seen. There is no small bowel wall thickening to suggest enteritis. The colon is unremarkable. The urinary bladder is unremarkable. There is no wall thickening to suggest tumor or inflammation. There are no intraluminal calculi. There are no diverticula. There is no evidence of chronic bladder outlet obstruction. There is no evidence of urinary bladder distention to suggest urinary retention. The other pelvic structures are unremarkable. The bony and vascular structures are unremarkable for the patient's age. IMPRESSION: No acute pathology. This study was performed using dose reduction techniques to include automated exposure control and/or adjustment of the mA and/or kV according to patient size.
--- NOTE | 2024-11-22 20:03 | ERN ---
General Chief Complaint: Abdominal Pain Stated Complaint: ABDOMINAL PAIN Time Seen by MD: 17:27 Time Seen by Midlevel: 17:27 Source: patient History of Present Illness Initial Comments 69-year-old female who presents to the emergency department due to abdominal pain onset one week. Patient reports nausea, diarrhea but denies any vomiting, chest pain, shortness of breath or further associated symptoms. PMHx DM, fibromyalgia, high cholesterol, HTN, hypothyroidism, gastritis Allergies: Coded Allergies: No Known Allergies (Unverified Allergy, Unknown, 12/30/17) Home Meds Active Scripts Nitrofurantoin Monohyd/M-Cryst (Macrobid 100 mg Capsule) 100 Mg Capsule, 1 CAP PO BID for 5 Days, #10 CAP 0 Refills Prov:CARLOS MOSQUERA [facility] 06/02/24 Tamsulosin HCl (Flomax) 0.4 Mg Cap.er.24h, 0.4 MG PO DAILY, #30 CAPSULE. Prov:CARLOS MOSQUERA [facility] 06/02/24 Past Medical History Past Medical History: Diabetes-Type II, Fibromyalgia, High Cholesterol, Hypertension, Hypothyroid Medical History Other: HX OF OSTERPOROSIS Past Surgical History: Cholecystectomy, Other, Surgical History Other: neck sx Social History Social History: Negative ROS Dictation Constitutional: Negative for fever,chills, and weight loss Eyes: Negative for injury, pain,redness, and discharge ENT: Negative for injury,pain or swelling Cardiovascular: Negative for chest pain, palpitations, and edema Respiratory: Negative for shortness of breath, cough, and wheezing, Abdomen/GI: Positive for abdominal pain, nausea, diarrhea Negative for vomiting, and constipation Back: Negative for injury and pain : Negative for painful urination, bleeding or discharge MS/Extremity: Negative for injury and deformity Skin: Negative for rash, and discoloration Neuro: Negative for headache, weakness, numbness, tingling, and seizure Psych: Negative for suicide ideation, homicidal ideation, and hallucinations the Physical Exam Physical Exam Dictation General: awake, alert, no acute distress Head/Face: Normocephalic, atraumatic Eyes: PERRL, EOMI, normal conjunctiva ENT: oral cavity clear, oral mucosa moist Neck: Supple, normal range of motion Cardiovascular: RRR, normal S1/S2 Respiratory: CTAB, no respiratory distress, no rales or wheezes Abdomen: Soft, mild generalized tenderness, non-distended, no guarding or rebound. Skin: Warm, dry, normal turgor, no rash MS/Extremity: Pulses equal, no cyanosis, neurovascular intact, FROM Neuro: COAx4, GCS 15, strength 5/5, CN 2-12 intact, normal cerebellar exam, normal gait Psych: Normal behavior, mood, and affect normal Results Laboratory and Microbiology Lab and Micro Result Laboratory Tests Test 11/22/24 17:50 11/22/24 19:54 White Blood Count 13.7 K/uL (4.8-10.8) H Red Blood Count 4.34 MIL/uL (4.00-5.50) Hemoglobin 12.8 g/dL (12.0-16.0) Hematocrit 39.1 % (36-48) Mean Corpuscular Volume 90.1 fL (79-99) Mean Corpuscular Hemoglobin 29.5 pg (27.0-33.0) Mean Corpuscular Hemoglobin Concent 32.7 g/dL (32.0-36.0) Red Cell Distribution Width 13.0 % (11.0-15.5) Platelet Count 277 K/uL (130-400) Mean Platelet Volume 10.0 fL (7.5-10.5) Immature Granulocyte % (Auto) 0.2 % (0-1) Neutrophils (%) (Auto) 57.1 % (40.0-77.0) Lymphocytes (%) (Auto) 29.0 % (21.0-51.0) Monocytes (%) (Auto) 11.1 % (3.0-13.0) Eosinophils (%) (Auto) 1.9 % (0.0-8.0) Basophils (%) (Auto) 0.7 % (0.0-5.0) Neutrophils # (Auto) 7.8 K/uL (1.8-7.7) H Lymphocytes # (Auto) 4.0 K/uL (1.0-4.8) Monocytes # (Auto) 1.5 K/uL (0.1-1.0) H Eosinophils # (Auto) 0.26 K/uL (0.00-0.70) Basophils # (Auto) 0.09 K/uL (0.00-0.20) Absolute Immature Granulocyte (auto 0.03 K/uL (0-1) Nucleated Red Blood Cells 0.0 % (0.0-0.19) Sodium Level 139 mmol/L (136-145) Potassium Level 3.9 mmol/L (3.5-5.1) Chloride Level 106 mmol/L (101-111) Carbon Dioxide Level 29 mmol/L (21-32) Blood Urea Nitrogen 20 mg/dL (7-18) H Creatinine 1.0 mg/dL (0.5-1.0) Glomerular Filtration Rate Calc 60 mL/min (>90) Random Glucose 153 mg/dL (70-105) H Total Calcium 8.8 mg/dL (8.5-10.1) Total Bilirubin 0.3 mg/dL (0.2-1.0) Direct Bilirubin 0.1 mg/dL (0.0-0.3) Aspartate Amino Transf (AST/SGOT) 25 U/L (10-37) Alanine Aminotransferase (ALT/SGPT) 30 U/L (12-78) Alkaline Phosphatase 93 U/L (50-136) Troponin I High Sensitivity 5 ng/L (4-50) Total Protein 8.0 g/dL (6.0-8.3) Albumin 3.5 g/dL (3.5-5.0) Lipase 23 U/L (16-77) Urine Color LIGHT-YELLOW (YELLOW) Urine Appearance CLEAR (CLEAR) Urine pH 7.5 (5.0-8.0) Urine Specific [place] 1.060 (1.001-1.031) Urine Protein 10 mg/dL (NEGATIVE) H Urine Glucose (UA) NEGATIVE mg/dL (NEGATIVE) Urine Ketones NEGATIVE mg/dL (NEGATIVE) Urine Occult Blood NEGATIVE (NEGATIVE) Urine Nitrate NEGATIVE (NEGATIVE) Urine Bilirubin NEGATIVE mg/dL (NEGATIVE) Urine Urobilinogen 0.2 mg/dL (0.2-1.0) Urine Leukocyte Esterase NEGATIVE Beryl/uL Urine RBC 0-1 /HPF (0-1) Urine WBC 2-5 /HPF (0-1) H Urine Squamous Epithelial Cells RARE /HPF (0-2) Urine Bacteria None /HPF (None Seen) Labs Reviewed?: Yes MDM Patient workup shows a slight elevation in her white blood cell count. Her chemistry panel and a UA suggest dehydration. The stomach upset that she was experiencing resolved with a GI cocktail. And she would like to go home. ED Course Orders Procedure Category Date Status Time Cbc With Differential LAB 11/22/24 Complete 17:34 Basic Metabolic Panel LAB 11/22/24 Complete 17:34 Urinalysis LAB 11/22/24 Complete W/Microscopic 17:34 Lipase LAB 11/22/24 Complete 17:34 Hepatic Function Panel LAB 11/22/24 Complete 17:34 Troponin I High LAB 11/22/24 Complete Sensitivity 17:34 12 Lead Ekg Tracing- EKG 11/22/24 Complete Technical 17:34 Ct Abdomen/Pelvis CT 11/22/24 Resulted W/Contrast 18:00 Ondansetron 4mg Inj PHA 11/22/24 Complete (Zofran 4mg Inj) 18:30 Morphine 2mg Syg PHA 11/22/24 Complete (Morphine 2mg Syg) 18:30 Pantoprazole 40mg Inj PHA 11/22/24 Complete (Protonix 40mg Inj 18:30 Iohexol (Omnipaque) PHA 11/22/24 Complete 18:54 Mag/Alum/Simeth 30ml PHA 11/22/24 Complete (Maalox Plus 30ml) 20:00 Lidocaine Hcl 2% PHA 11/22/24 Complete Viscous (Lidocaine Hcl 20:00 Current Medications Medications (Trade) Dose Ordered Sig/Veronica Route PRN Reason Start Time Stop Time Status Last Admin Dose Admin Al Hydroxide/Mg Hydroxide (MAALox PLUS 30ML) 30 ml ONCE ONCE PO 11/22/24 20:00 11/22/24 20:01 DC 11/22/24 20:33 Iohexol (Omnipaque) 35,000 mg STK-MED ONCE IV 11/22/24 18:54 11/22/24 18:55 DC Lidocaine HCl (Lidocaine HCl 2% Viscous) 10 ml ONCE ONCE PO 11/22/24 20:00 11/22/24 20:01 DC 11/22/24 20:33 Morphine Sulfate (morPHINE 2MG SYG) 2 mg ONCE ONCE IVP 11/22/24 18:30 11/22/24 18:31 DC 11/22/24 18:43 Ondansetron HCl (zoFRAN 4MG INJ) 4 mg ONCE ONCE IVP 11/22/24 18:30 11/22/24 18:31 DC 11/22/24 18:42 Pantoprazole Sodium (PROTonix 40MG INJ) 40 mg ONCE ONCE IVP 11/22/24 18:30 11/22/24 18:31 DC 11/22/24 18:42 Vital Signs Date Time Temp Pulse Resp B/P (MAP) Pulse Ox O2 Delivery O2 Flow Rate FiO2 11/22/24 17:30 98.1 79 18 148/63 97 Room Air* 0 21 11/22/24 17:25 98.1 79 18 148/63 Room Air 0 DX & DISP Disposition: Discharge Departure Impression: Primary Impression: Heartburn Condition: Stable Referrals: FINA VIZCAINO MD (PCP) I recommend taking Tums as well as Zantac at night. And please take your proton pump inhibitor. Our lab suggest also that yours dehydrated. Please drink plenty of fluid when you get home a good indication of hydration is that your urine is clear at least once a day. DAINEL SALMON Nov 22, 2024 20:03 ANH SHAH MD Nov 22, 2024 20:53
[2024-11-22 20:12] LABS: APPEARANCE,URINE CLEAR (CLEAR); BILIRUBIN,URINE NEGATIVE (NEGATIVE); COLOR,URINE LIGHT-YELLOW (YELLOW); GLUCOSE, URINE (UA) NEGATIVE (NEGATIVE); KETONES,URINE NEGATIVE (NEGATIVE); LEUKOCYTE ESTERASE ,URINE NEGATIVE Leu/uL (NEGATIVE); MUCUS,URINE RARE LPF (None Seen); NITRATE,URINE NEGATIVE (NEGATIVE); OCCULT BLOOD,URINE NEGATIVE (NEGATIVE); PH,URINE 7.5 (5.0-8.0); PROTEIN,URINE 10 mg/dL (NEGATIVE); RBC,URINE 0-1 /HPF (0-1); SQUAMOUS EPITHELIAL CELL,UR RARE /HPF (0-2); UROBILINOGEN,URINE 0.2 mg/dL (0.2-1.0)
[2024-11-22] MEDS: MAG/ALUM/SIMETH 30 ML UDCUP PO ONE (20:33)
[2024-11-22] MEDS: LIDOCAINE HCL 2% VISCOUS 15 ML UDCUP PO ONE (20:33)
[2024-11-22 20:40] VITALS: BP 143/64; PULSE 73; RESP 18; TEMP 98.5; O2SAT 96
== END 2024-11-22 21:28 | disposition home or self-care (01) ==
LOC: EDH 17:22
DX: R12 Heartburn (principal); E03.9 Hypothyroidism, unspecified; E11.9 Type 2 diabetes mellitus without complications; E78.00 Pure hypercholesterolemia, unspecified; I10 Essential (primary) hypertension; M79.7 Fibromyalgia; Z90.49 Acquired absence of other specified parts of digestive tract
CPT/HCPCS: 99285; 74177; 96374; 96375; 80076; 84484; 80048; 83690; 85025; 81001; 36415; 93005; J2270; J2405; J2470; Q9967

== ENCOUNTER 2025-03-26 13:31 | Emergency (ER) | payer MEDICARE ==
[~2025-03-26] VITALS: Ht 154.9 cm; Wt 80.7 kg
[2025-03-26 14:19] LABS: APPEARANCE,URINE CLEAR (CLEAR); GLUCOSE, URINE (UA) NEGATIVE (NEGATIVE); LEUKOCYTE ESTERASE ,URINE NEGATIVE Leu/uL (NEGATIVE); NITRATE,URINE NEGATIVE (NEGATIVE); OCCULT BLOOD,URINE NEGATIVE (NEGATIVE)
[2025-03-26 14:20] LABS: ADD UA MICROSCOPIC YES
[2025-03-26 14:21] LABS: SQUAMOUS EPITHELIAL CELL,UR RARE /HPF (0-2)
[2025-03-26] MEDS: 0.9% NACL 500ML IV.SOLN 500 ML IV ONE (14:43)
[2025-03-26 14:55] LABS: IMMATURE GRANULOCYTE ABSOLUTE 0.06 K/uL (0-1); NUCLEATED RED BLOOD CELLS 0.0 % (0.0-0.19); PLATELET COUNT (AUTO) 276 K/uL (130-400); RED BLOOD CELL COUNT(AUTO) 4.57 MIL/uL (4.00-5.50); RED CELL DISTRIBUTION WIDTH 13.9 % (11.0-15.5); WHITE BLOOD COUNT (AUTO) 16.7 K/uL (4.8-10.8)
--- NOTE | 2025-03-26 15:05 | HMCIMG ---
INDICATION: right flank pain. COMPARISON: None. TECHNIQUE: CT images were created without intravenous contrast. Numerous low-radiation dose strategies were employed including AEC (Automatic Exposure Control), individualized BMI-based low dose scan protocols and the exam was performed on a CT scanner that is compliant with the NEMA XR-29 Smart Dose Standard. DICOM Radiation Dose Structured Reporting capability and Dose Check Standard are also features of this scanner. RADIATION DOSE ESTIMATE: CTDIvol (mGy): 10.40 \ DLP (mGy-cm): 532.60 FINDINGS: LOWER THORAX:Lung bases are clear. Normal cardiac size without pericardial effusion. LIVER: No focal hepatic abnormality. BILIARY: The gallbladder is surgically absent with clips in the gallbladder fossa.. No intra or extrahepatic biliary ductal dilatation. PANCREAS: Normal. No lesion, fluid collection, ductal dilatation, or acute inflammation. SPLEEN: Normal. No enlargement or focal lesion. STOMACH/DUODENUM: Unremarkable. ADRENALS: Normal. No mass or enlargement. KIDNEYS: Normal. No mass, obstruction, or nephrolithiasis. BOWEL/MESENTERY: Normal. No visible mass, obstruction, or bowel wall thickening. AORTA/VASCULAR: No aneurysm. Early atherosclerotic disease with occasional calcified plaque.. PERITONEUM/RETROPERITONEUM: Normal. No mass, ascites or free air. LYMPH NODES: No pathologically enlarged lymph nodes. URINARY BLADDER: Normal. No visible focal wall thickening, lesion, or calculus. PELVIC ORGANS: The uterus appears to be surgically absent. BONES: No acute osseous abnormality. ABDOMINAL WALL/SOFT TISSUES: Normal. No mass or hernia. There is right gluteal region up implantable device in place. IMPRESSION: No acute abdominal findings.
[2025-03-26 15:12] LABS: CREATININE 0.6 mg/dL (0.5-1.0); GLOMERULAR FILTR. RATE CALC 96.0 mL/min (>90); GLUCOSE,RANDOM 112.0 mg/dL (70-105); SODIUM SERUM 139.0 mmol/L (136-145); UREA NITROGEN, BLOOD 26.0 mg/dL (7-18)
[2025-03-26 15:21] LABS: ASPARTATE AMINOTRANSFERASE 41.0 U/L (10-37); TOTAL PROTEIN, SERUM 7.9 g/dL (6.0-8.3)
[2025-03-26 16:40] VITALS: BP 147/62; PULSE 71; RESP 16; TEMP 97.9; O2SAT 97
[2025-03-26] MEDS ORDERED: CYCL10TA16 PO (16:58)
--- NOTE | 2025-03-26 16:58 | ERN ---
ED Note History of Present Illness Stated Complaint: BACK PAIN Chief Complaint: Back Pain-No Injury Time Seen by MD: 13:51 Dictation: 69-year-old female presenting to the emergency department with one week of low back pain on and off, no fever no chest pain patient did get some nausea today. Has not follow up with the primary care doctor for Allergies: Coded Allergies: No Known Allergies (Unverified Allergy, Unknown, 12/30/17) Home Meds Active Scripts Nitrofurantoin Monohyd/M-Cryst (Macrobid 100 mg Capsule) 100 Mg Capsule, 1 CAP PO BID for 5 Days, #10 CAP 0 Refills Prov:CARLOS MOSQUERA [facility] 06/02/24 Tamsulosin HCl (Flomax) 0.4 Mg Cap.er.24h, 0.4 MG PO DAILY, #30 CAPSULE.DR Prov:CARLOS MOSQUERA [facility] 06/02/24 Past Medical History Past Medical History: Diabetes-Type II, Fibromyalgia, Hypertension, Hyp othyroid, Hypotension Additional Past Medical Hx: HX OF OSTERPOROSIS Surgical History: Cholecystectomy, Other, Surgical History Other: neck sx Social History: Negative Review of System Dictation Constitutional: Negative for fever,chills, and weight loss Eyes: Negative for injury, pain,redness, and discharge ENT: Negative for injury,pain or swelling Cardiovascular: Negative for chest pain, palpitations, and edema Respiratory: Negative for shortness of breath, cough, and wheezing, Abdomen/GI: Per HPI Back: Per HPI : Negative for injury, bleeding and discharge MS/Extremity: Negative for injury and deformity Skin: Negative for rash, and discoloration Neuro: Negative for headache, weakness, numbness, tingling, and seizure Psych: Negative for suicide ideation, homicidal ideation, and hallucinations Initial Vital Sign VS Vital Signs Date Time Temp Pulse Resp B/P (MAP) Pulse Ox O2 Delivery O2 Flow Rate FiO2 03/26/25 13:32 97.0 73 16 174/74 97 Room Air 0 03/26/25 13:35 21 Physical Exam Dictation General: awake, alert, NAD Head/Face: Normocephalic, atraumatic Eyes: PERRL, EOMI, vision at baseline ENT: oral cavity clear, TMs clear, no signs of infection Neck: Trachea midline, supple, no nuchal rigidity Cardiovascular: RRR, normal S1/S2, No MRGs, no JVD Respiratory: CTAB, no respiratory distress, No rales or wheezes Abdomen: Soft, non-tender, non-distended, normal bowel sounds, no guarding or rebound. Skin: Warm, dry, normal turgor, no rash MS/Extremity: Pulses equal, no cyanosis, neurovascular intact, FROM Neuro: COAx4, GCS 15, strength 5/5, CN 2-12 intact, normal cerebellar exam, normal gait, Psych: Normal behavior, mood, and affect normal Results (Laboratory/Radiology) Laboratory/Radiology Laboratory Tests Test 03/26/25 14:00 03/26/25 14:40 Urine Color YELLOW (YELLOW) Urine Appearance CLEAR (CLEAR) Urine pH 6.5 (5.0-8.0) Urine Specific [place] 1.025 (1.001-1.031) Urine Protein 30 mg/dL (NEGATIVE) H Urine Glucose (UA) NEGATIVE mg/dL (NEGATIVE) Urine Ketones NEGATIVE mg/dL (NEGATIVE) Urine Occult Blood NEGATIVE (NEGATIVE) Urine Nitrate NEGATIVE (NEGATIVE) Urine Bilirubin NEGATIVE mg/dL (NEGATIVE) Urine Urobilinogen 0.2 mg/dL (0.2-1.0) Urine Leukocyte Esterase NEGATIVE [place]/uL Urine RBC 0-1 /HPF (0-1) Urine WBC 2-5 /HPF (0-1) H Urine Squamous Epithelial Cells RARE /HPF (0-2) Urine Bacteria None /HPF (None Seen) White Blood Count 16.7 K/uL (4.8-10.8) H Red Blood Count 4.57 MIL/uL (4.00-5.50) Hemoglobin 13.0 g/dL (12.0-16.0) Hematocrit 40.9 % (36-48) Mean Corpuscular Volume 89.5 fL (79-99) Mean Corpuscular Hemoglobin 28.4 pg (27.0-33.0) Mean Corpuscular Hemoglobin Concent 31.8 g/dL (32.0-36.0) L Red Cell Distribution Width 13.9 % (11.0-15.5) Platelet Count 276 K/uL (130-400) Mean Platelet Volume 9.9 fL (7.5-10.5) Immature Granulocyte % (Auto) 0.4 % (0-1) Neutrophils (%) (Auto) 59.4 % (40.0-77.0) Lymphocytes (%) (Auto) 29.9 % (21.0-51.0) Monocytes (%) (Auto) 8.3 % (3.0-13.0) Eosinophils (%) (Auto) 1.2 % (0.0-8.0) Basophils (%) (Auto) 0.8 % (0.0-5.0) Neutrophils # (Auto) 10.0 K/uL (1.8-7.7) H Lymphocytes # (Auto) 5.0 K/uL (1.0-4.8) H Monocytes # (Auto) 1.4 K/uL (0.1-1.0) H Eosinophils # (Auto) 0.20 K/uL (0.00-0.70) Basophils # (Auto) 0.13 K/uL (0.00-0.20) Absolute Immature Granulocyte (auto 0.06 K/uL (0-1) Nucleated Red Blood Cells 0.0 % (0.0-0.19) Sodium Level 139 mmol/L (136-145) Potassium Level 4.4 mmol/L (3.5-5.1) Chloride Level 101 mmol/L (101-111) Carbon Dioxide Level 27 mmol/L (21-32) Blood Urea Nitrogen 26 mg/dL (7-18) H Creatinine 0.6 mg/dL (0.5-1.0) Glomerular Filtration Rate Calc 96 mL/min (>90) Random Glucose 112 mg/dL (70-105) H Total Calcium 8.9 mg/dL (8.5-10.1) Total Bilirubin 0.6 mg/dL (0.2-1.0) Direct Bilirubin 0.1 mg/dL (0.0-0.3) Aspartate Amino Transf (AST/SGOT) 41 U/L (10-37) H Alanine Aminotransferase (ALT/SGPT) 29 U/L (12-78) Alkaline Phosphatase 84 U/L (50-136) Troponin I High Sensitivity 7 ng/L (4-50) Total Protein 7.9 g/dL (6.0-8.3) Albumin 3.3 g/dL (3.5-5.0) L Lipase 29 U/L (16-77) Labs Reviewed?: Yes EKG Comment: Heart rate 88, normal sinus rhythm, normal intervals no STEMI ED Course ED Course Orders Procedure Category Date Status Time Urinalysis Profile LAB 03/26/25 Complete 14:08 12 Lead Ekg Tracing- EKG 03/26/25 Logged Technical 14:14 Basic Metabolic Panel LAB 03/26/25 Complete 14:14 Cbc With Differential LAB 03/26/25 Complete 14:14 Hepatic Function Panel LAB 03/26/25 Complete 14:14 Lipase LAB 03/26/25 Complete 14:14 Troponin I High LAB 03/26/25 Complete Sensitivity 14:14 Ct Abd/Pel Wo Con CT 03/26/25 Resulted Renal/Appy 14:14 Ondansetron 4mg Inj PHA 03/26/25 Complete (Zofran 4mg Inj) 14:14 Morphine 4mg Syg PHA 03/26/25 Complete (Morphine 4mg Syg) 14:30 0.9% Nacl 500ml PHA 03/26/25 Complete Iv.Soln (Ns 500ml 14:30 Current Medications Medications (Trade) Dose Ordered Sig/Veronica Route PRN Reason Start Time Stop Time Status Last Admin Dose Admin Morphine Sulfate (morPHINE 4MG SYG) 4 mg ONCE ONCE IVP 03/26/25 14:30 03/26/25 14:31 DC 03/26/25 14:43 Ondansetron HCl (zoFRAN 4MG INJ) 4 mg ONCE STAT IVP 03/26/25 14:14 03/26/25 14:17 DC 03/26/25 14:43 Sodium Chloride 500 ml @ 0 mls/hr ONCE ONCE IV 03/26/25 14:30 03/26/25 14:31 DC 03/26/25 14:43 Vital Signs Date Time Temp Pulse Resp B/P (MAP) Pulse Ox O2 Delivery O2 Flow Rate FiO2 03/26/25 16:40 97.9 71 16 147/62 97 Room Air* 0 03/26/25 15:26 97.9 68 16 166/67 96 Room Air* 0 03/26/25 13:55 97.9 80 16 178/62 98 Room Air* 0 03/26/25 13:35 97.9 73 16 174/74 97 Room Air* 0 03/26/25 13:32 97.0 73 16 174/74 97 Room Air 0 Medical Decision Making MDM MDM: Differential diagnosis: Rationale: Tests considered and ordered secondary to shared decision making include: Previous outside records reviewed: Old ER visits. Risk of complication and/or morbidity or mortality of patient management: None Medications-Per medication reconciliation Need for hospitalization: Patient does not meet criteria for hospitalization. Need for emergency major/minor surgery: No There are no social concerns with this patient. Prescription drug management Prescriptions will include symptomatic care Patient's prior external medical records from other ER visits were reviewed by me as indicated. Prior testing and results from previous visits were reviewed. Prior tests were taken into account with medical decision making and resource utilization, independent historian/historians were used to obtain complete medical history. I independently interpreted the test that were performed, results were reviewed by me and considered findings on radiology if ordered. Medical management and examination interpretation discussions were had by me with other qualified healthcare professionals as indicated for the patient's care. 69-year-old female with back pain stable exam negative workup mild leukocytosis with no focal signs of infection no UTI stable for discharge and follow up with primary care doctor. DX & DISP Disposition: Discharge Departure Impression: Primary Impression: Low back pain Condition: Stable Scripts Cyclobenzaprine HCl (Flexeril) 10 Mg Tab 10 MG PO BID for muscle sstiffness, #10 TAB 0 Refills Prov: LITO WINTER MD 03/26/25 Referrals: PIETRO NIEVES MD (PCP) LITO WINTER MD Mar 26, 2025 16:58
--- NOTE | 2025-03-27 01:52 | EKG ---
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
== END 2025-03-26 17:08 | disposition home or self-care (01) ==
LOC: EDH 13:31
DX: M54.50 Low back pain, unspecified (principal); R11.0 Nausea; E03.9 Hypothyroidism, unspecified; I10 Essential (primary) hypertension; M79.7 Fibromyalgia; E11.9 Type 2 diabetes mellitus without complications; M81.0 Age-related osteoporosis without current pathological fracture; Z90.49 Acquired absence of other specified parts of digestive tract; Z98.890 Other specified postprocedural states
CPT/HCPCS: 99285; 78264; 74176; 96374; 96375; 80076; 84484; 80048; 83690; 85025; 81001; 36415; 93005; J7040; J2405; J2270; A9541